=== PATIENT | male | born 1960 | race Caucasian/White ===

== ENCOUNTER 2020-11-21 11:31 | Emergency (ER) | payer BC, SELFPAY ==
[2020-11-21 11:41] VITALS: BP 150/90; PULSE 82; RESP 18; TEMP 36.6; O2SAT 98; BMI 20.2
--- NOTE | 2020-11-21 11:44 | ED_ITS ---
HPI - Chest Pain General Chief Complaint: Chest Pain Stated Complaint: chest pain,lightheaded Time Seen by Provider: 11/21/20 11:44 Source: patient Mode of arrival: ambulatory Limitations: no limitations History of Present Illness HPI narrative: Rapid medical evaluation / triage 60-year-old male with history of asthma, migraine headaches, recurrent SBO, Gastrointestinal Stromal Tumors status post resection at [facility] presents with complaint of chest pain since last night now resolved this morning felt lightheaded spotting here. No recent illness. He was on migraine medication recently stopped otherwise no other recent history. Normal bowel movement this morning. He is on baclofen for upper back for muscle spasm by neurologist. He does tell me that he had a traditional [place] dish prior to the onset of symptoms. MD complaint: chest pain Onset: after eating Pain location: substernal Quality: burning Exacerbating factors: nothing Treatment prior to arrival: none Risk Factors Coronary artery disease risk factors: none Related Data Allergies Allergy/AdvReac Type Severity Reaction Status Date / Time sulfamethoxazole Allergy Unknown UNKNOWN Verified 11/21/20 11:46 [From BACTRIM] trimethoprim [From BACTRIM] Allergy Unknown UNKNOWN Verified 11/21/20 11:46 erythromycin base AdvReac Mild NAUSEA & Verified 11/21/20 11:46 [ERYTHROMYCIN BASE] VOMITING naltrexone [NALTREXONE] AdvReac Mild NAUSEA & Verified 11/21/20 11:46 VOMITING Review of Systems Review of Systems: Constitutional: No Weight loss, No Fever, No Chills, No Night Sweats, No Fatigue, No Malaise ENT/Mouth: No Hearing loss, No Ear Pain, No Nasal Congestion, No Sinus Pain, No Hoarseness, No sore throat, No Rhinorrhea, No Swallowing Difficulty Eyes: No Eye Pain, No Swelling, No Redness, No Foreign Body, No Discharge, No Vision Changes Cardiovascular: No SOB, No Dyspnea on Exertion, No Orthopnea, No Edema, No Palpitations Respiratory: No Cough, No Sputum, No Wheezing, No Smoke Exposure, No Dyspnea Gastrointestinal: No Nausea, No Vomiting, No Diarrhea, No Constipation, No abdominal Pain, No Hematochezia, No Melena Genitourinary: no irregular bleeding, No Dysuria, No Urinary Frequency, No Hematuria, No Urinary Incontinence, No Urgency, No Flank Pain, No Urinary Flow Changes, No Hesitancy Musculoskeletal: No joint pain, No Myalgias, No Joint Swelling Skin: No Skin Lesions, No rash Neuro: No Weakness, No Numbness, No Paresthesias, No Loss of Consciousness, No Dizziness, No Headache Psych: No Social Issues Heme/Lymph: No Bruising, No Bleeding,No Lymphadenopathy Endocrine: No Polyuria, No Polydipsia, No Temperature Intolerance Yes all other systems are reviewed and are negative [facility] Past Medical History Medical History (Updated 11/21/20 @ 14:51 by Michael Mir NP) Allergies Asthma Bowel obstruction Chronic headaches GIST, malignant Kidney stones Surgical History (Updated 11/21/20 @ 11:45 by Kayce Acevedo) H/O splenectomy Social History Social History Advance Directives: No Advance Directives Information Provided: No Physical Exam Vital Signs: Vital Signs: Last Vital Signs Temp 97.9 F 11/21/20 11:41 Pulse 70 11/21/20 14:51 Resp 18 11/21/20 14:51 BP 123/75 11/21/20 14:51 Pulse Ox 99 11/21/20 14:51 Body Mass Index 20.2 Reviewed Const: General: cooperative and healthy appearing; No acute distress or intoxicated appearing Nutritional Appearance: average body habitus Orientation/consciousness: patient oriented x3 HENMT: Head: Yes normal to inspection Ears: hearing grossly normal bilaterally Eyes: General: appearance normal, both eyes and all related structures Visual Henry: normal visual henry by confrontation Neck: Neck: Yes normal visual inspection, No positive Brudzinski's sign, No positive Kernig's sign and No tender Thyroid: Thyroid normal Chest: Chest palpation & inspection: normal inspection of the chest Resp: Effort & Inspection: normal respiratory effort Auscultation: clear to auscultation bilaterally Cardio: Jugular venous distension: no JVD Rate: regular rate Rhythm: regular rhythm Heart sounds: S1 normal heart sound present and S2 normal heart sound present GI: Inspection: Yes normal to inspection Percussion: Yes normal to percussion Auscultation: normal bowel sounds : General: Yes no CVA tenderness Back/Spine/Pelvis: Back: no CVA tenderness Skin: General skin exam: no rashes or lesions noted Neuro: General: patient oriented x3 Extrem: General: Yes normal to inspection Course Course Course Narrative: 1146 Patient triage to main emergency room requiring further evaluation. Stable at this time. Labs order and drawn. [facility] - Chest Pain MDM Narrative Medical decision making narrative: Has been stable while in the ED. Offers no complaints of pain or discomfort. Has not had any further episodes. EKG nondiagnostic. X-ray negative. Labs overall stable. Symptoms resolved prior to arrival and have been going on since last evening with a negative high sensitivity troponin. Heart score 1 Suspicions for pulmonary embolism low given the presentation, not hypoxic nor tachycardic or prior history of DVT/PE or fractures that were contribute. Differential Diagnosis Differential diagnosis: Likely stable angina, atypical chest pain and chest pain; Unlikely fracture of rib, pneumothorax, unstable angina pectoris, st elevation myocardial infarction, costochondritis and biliary colic Medical Records Data Attestation: I reviewed the patient's medical records. Lab Data Attestation: I reviewed the patient's lab results. Result diagrams: 11/21/20 11:52 11/21/20 11:52 Labs: Lab Results 11/21/20 11/21/20 11/21/20 Range/Units 11:52 11:52 11:52 WBC 11.3 H (4.8-10.8) X10*3/uL RBC 4.14 L (4.60-5.80) X10*6/uL Hgb 13.5 L (14.0-18.0) g/dl Hct 40.9 L (42-52) % MCV 98.8 H (80-98) fL MCH 32.6 (27.0-33.0) pg MCHC 33.0 (31.0-36.0) g/dl RDW 12.7 (11.0-16.0) % Plt Count 293 (160-400) X10*3/uL MPV 11.2 (9.4-12.4) fL Immature Gran % (Auto) 0.3 (0.0-0.4) % Neut % (Auto) 77.5 H (45-73) % Lymph % (Auto) 11.5 L (20-40) % [place] % (Auto) 9.8 (2-11) % Eos % (Auto) 0.4 (0-4) % Baso % (Auto) 0.5 (0-2) % Lymph # (Auto) 1.3 (1.2-4.9) X10*3/uL [place] # (Auto) 1.1 (0.1-1.2) X10*3/uL Eos # (Auto) 0.0 (0.0-0.4) X10*3/uL Baso # (Auto) 0.1 (0.0-0.2) X10*3/uL Abs Immat Gran (auto) 0.03 (0.00-0.03) X10*3/uL Absolute Neuts (auto) 8.8 H (2.0-8.3) X10*3/uL Absolute Nucleated RBC 0.000 (0.0-0.012) X10*3/uL Nucleated RBC % (auto) 0.0 (0.0-0.2) /100WBC PT 11.8 (10.8-13.0) SEC INR 1.0 (0.9-1.1) APTT 31.3 (24.1-38.0) SEC Sodium 140 (135-145) mmol/L Potassium 4.6 (3.3-5.1) mmol/l Chloride 104 (96-108) mmol/L Carbon Dioxide 26 (22-29) mmol/L Anion Gap 15 (12-20) BUN 23 H (9-16) mg/dL Creatinine 0.95 (0.5-1.4) mg/dL Estim Creat Clear Calc 61.0 Estimated GFR > 60 Random Glucose 114 (60-115) mg/dL Calcium 9.3 (8.4-10.2) mg/dL Total Bilirubin 0.5 (0.0-1.0) mg/dL AST 27 (5-37) U/L ALT 27 (0-40) U/L Alkaline Phosphatase 59 (39-117) U/L Troponin I High Sens (<3.5-35.0) ng/L Total Protein 7.2 (6.5-8.0) g/dL Albumin 4.4 (3.5-5.0) g/dL Urine Color Urine Appearance Urine pH (5.0-8.0) Ur Specific [place] (1.005-1.025) Urine Protein (NEG-TRACE) MG/DL Urine Glucose (UA) (NEG) MG/DL Urine Ketones (NEG) MG/DL Urine Blood (NEG) Urine Nitrite (NEG) Ur Leukocyte Esterase (NEG) Urine RBC (0) /HPF Urine WBC (0-4) /HPF Ur Squamous Epith Cells /LPF Urine Bacteria /LPF 11/21/20 11/21/20 Range/Units 11:52 12:14 WBC (4.8-10.8) X10*3/uL RBC (4.60-5.80) X10*6/uL Hgb (14.0-18.0) g/dl Hct (42-52) % MCV (80-98) fL MCH (27.0-33.0) pg MCHC (31.0-36.0) g/dl RDW (11.0-16.0) % Plt Count (160-400) X10*3/uL MPV (9.4-12.4) fL Immature Gran % (Auto) (0.0-0.4) % Neut % (Auto) (45-73) % Lymph % (Auto) (20-40) % [place] % (Auto) (2-11) % Eos % (Auto) (0-4) % Baso % (Auto) (0-2) % Lymph # (Auto) (1.2-4.9) X10*3/uL [place] # (Auto) (0.1-1.2) X10*3/uL Eos # (Auto) (0.0-0.4) X10*3/uL Baso # (Auto) (0.0-0.2) X10*3/uL Abs Immat Gran (auto) (0.00-0.03) X10*3/uL Absolute Neuts (auto) (2.0-8.3) X10*3/uL Absolute Nucleated RBC (0.0-0.012) X10*3/uL Nucleated RBC % (auto) (0.0-0.2) /100WBC PT (10.8-13.0) SEC INR (0.9-1.1) APTT (24.1-38.0) SEC Sodium (135-145) mmol/L Potassium (3.3-5.1) mmol/l Chloride (96-108) mmol/L Carbon Dioxide (22-29) mmol/L Anion Gap (12-20) BUN (9-16) mg/dL Creatinine (0.5-1.4) mg/dL Estim Creat Clear Calc Estimated GFR Random Glucose (60-115) mg/dL Calcium (8.4-10.2) mg/dL Total Bilirubin (0.0-1.0) mg/dL AST (5-37) U/L ALT (0-40) U/L Alkaline Phosphatase (39-117) U/L Troponin I High Sens < 3.5 (<3.5-35.0) ng/L Total Protein (6.5-8.0) g/dL Albumin (3.5-5.0) g/dL Urine Color STRAW Urine Appearance CLEAR Urine pH 6.0 (5.0-8.0) Ur Specific [place] <= 1.005 (1.005-1.025) Urine Protein NEG (NEG-TRACE) MG/DL Urine Glucose (UA) NEG (NEG) MG/DL Urine Ketones NEG (NEG) MG/DL Urine Blood NEG (NEG) Urine Nitrite NEG (NEG) Ur Leukocyte Esterase NEG (NEG) Urine RBC 0-2 (0) /HPF Urine WBC 0-2 (0-4) /HPF Ur Squamous Epith Cells NONE /LPF Urine Bacteria NONE /LPF Imaging Data Chest x-ray: Radiologist's impression: [address] [address] XRay Report Signed Patient: Aashish Rodriguez MR#: [id number] : 1960 Acct:[id number] Age/Sex: 60 / M ADM Date: 11/21/20 Loc: .ED Attending Dr: Ordering Physician: Michael Mir NP Date of Service: 11/21/20 Procedure(s): XR chest 2V Accession Number(s): [id number] 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 FINDINGS: The lungs are well-expanded without acute pneumonic process. There is a 1.3 cm calcified density overlying left posterior ninth interspace question artifact or calcified pulmonary nodule or pleural plaque. It is not visualized on the lateral view. Size and pulmonary vascularity is normal. There is moderate spondylosis dorsal spine. XR/XR chest 2V IMPRESSION: No acute process seen. Calcified density left lower lobe question artifact versus calcified nodular pleural plaque. It was not visualized on previous exam 08/26/2014. Dictated By: JUAN C KHANNA MD Signed By: <Electronically signed by JUAN C KHANNA MD in OV> 11/21/20 1324 DD/ 1146 TD/TT: Aids Nurse: DORIAN ECG Data ECG #1: Interpretation: Normal sinus rhythm with sinus arrhythmia Normal ECG When compared with ECG of 29-NOV-2012 05:26, No significant change was found Discharge Plan Discharge Clinical Impression: Atypical chest pain Patient Disposition: Home, Self-Care Instructions: Chest Pain (ED) Additional Instructions: Your blood work was overall stable Chest x-ray was within normal limits Her EKG did not show any signs of heart attack Your COVID test was negative [place] diet Take her antacid medication as prescribed on an empty stomach with 8 oz cup of water in the morning Return if any concerns or any worsening symptoms including chest pain, shortness of breath, fever Otherwise follow up with her primary care in 1 week for follow-up Thank you Referrals: Shabbir Sosa MD [Primary Care Provider] - 1 week
--- NOTE | 2020-11-21 11:47 | ECG_ITS ---
Test Reason : CP Blood Pressure : / mmHG Vent. Rate : 065 BPM Atrial Rate : 065 BPM P-R Int : 134 ms QRS Dur : 088 ms QT Int : 394 ms P-R-T Axes : 059 014 033 degrees QTc Int : 409 ms Normal sinus rhythm with sinus arrhythmia Normal ECG When compared with ECG of 29-NOV-2012 05:26, No significant change was found Referred By: Michael Mir Electronically Signed By:SHIVANI RAMOS MD
[2020-11-21 12:11] LABS: MANUAL DIFF FLAG NO
[2020-11-21 12:14] LABS: Prothrombin Time 11.8 SEC (10.8-13.0)
[2020-11-21 12:17] LABS: Partial Thromboplastin Time 31.3 SEC (24.1-38.0)
[2020-11-21 12:25] LABS: Basophils Absolute Auto 0.1 X10*3/uL (0.0-0.2); Basophils Percent Auto 0.5 % (0-2); Eosinophils Percent Auto 0.4 % (0-4); Hematocrit 40.9 % (42-52); Hemoglobin 13.5 g/dl (14.0-18.0); Imm Gran Abs Auto 0.03 X10*3/uL (0.00-0.03); Imm Gran Pct Auto 0.3 % (0.0-0.4); Lymphocytes Absolute Auto 1.3 X10*3/uL (1.2-4.9); Lymphocytes Percent Auto 11.5 % (20-40); Mean Corpuscular Hemoglobin 32.6 pg (27.0-33.0); Mean Corpuscular Volume 98.8 fL (80-98); Mean Platelet Volume 11.2 fL (9.4-12.4); Monocytes Absolute Auto 1.1 X10*3/uL (0.1-1.2); Monocytes Percent Auto 9.8 % (2-11); Neutrophils Absolute Auto 8.8 X10*3/uL (2.0-8.3); Neutrophils Percent Auto 77.5 % (45-73); Platelet Count 293 X10*3/uL (160-400); Red Blood Count 4.14 X10*6/uL (4.60-5.80); Red Cell Distribution Width 12.7 % (11.0-16.0); White Blood Count 11.3 X10*3/uL (4.8-10.8)
[2020-11-21 12:31] LABS: Glucose Urine UA NEG (NEG); Leukocyte Esterase Urine NEG (NEG); Nitrite Urine NEG (NEG); Specific Gravity - Urine <= 1.005 (1.005-1.025); Urine Blood NEG (NEG); Urine Ketones NEG (NEG); Urine Protein NEG (NEG-TRACE)
[2020-11-21 12:33] LABS: Appearance Urine CLEAR; Color Urine STRAW
[2020-11-21 12:38] LABS: Alanine Aminotransferase 27 U/L (0-40); Albumin Level 4.4 g/dL (3.5-5.0); Alkaline Phosphatase 59 U/L (39-117); Anion Gap 15 (12-20); Aspartate Amino Transferase 27 U/L (5-37); Bilirubin Total 0.5 mg/dL (0.0-1.0); Blood Urea Nitrogen 23 mg/dL (9-16); Calcium 9.3 mg/dL (8.4-10.2); Carbon Dioxide 26 mmol/L (22-29); Chloride 104 mmol/L (96-108); Estimated Glomerular Filt Rate > 60; Glucose Random 114 mg/dL (60-115); Potassium 4.6 mmol/l (3.3-5.1); Sodium 140 mmol/L (135-145); Total Protein 7.2 g/dL (6.5-8.0)
[2020-11-21 12:41] LABS: Troponin-I High Sensitivity < 3.5 ng/L (<3.5-35.0)
[2020-11-21 12:48] LABS: RBC Urine 0-2 /HPF (0); WBC Urine 0-2 /HPF (0-4)
--- NOTE | 2020-11-21 14:49 | PC.NURSE ---
re evaluation completed, plan to d.c home
[2020-11-21 14:51] VITALS: BP 123/75; PULSE 70; RESP 18; O2SAT 99
== END 2020-11-21 16:30 | disposition home or self-care (01) ==
LOC: HO.ED 14:57
PROVIDERS: Nurse Practitioner Primary Care; Emergency Provider Emergency Medicine; PCP Internal Medicine
DX: R07.89 Other chest pain (principal)
CPT/HCPCS: 36415; 71046; 80053; 81001; 84484; 85025; 85610; 85730; 93005; 99283

== ENCOUNTER 2024-11-17 11:46 | Emergency (ER) | payer BC, SELFPAY ==
--- NOTE | ~2024-11-17 | CT_ITS ---
EXAMINATION: CT HEAD WITHOUT CONTRAST CLINICAL INFORMATION: headache. pmh of stomach CA. metastesis COMPARISON: None available. TECHNIQUE: Contiguous axial imaging was performed from the skull base to vertex without intravenous administration of contrast. This CT examination was performed using dose optimization techniques as appropriate, variously including the following: *Automated exposure control *Adjustment of mA and/or kV according to patient size (this includes techniques or standardized protocols for targeted exams where dose is matched to indication/reason for exam; i.e. extremities or head) *Use of iterative reconstruction technique DLP: 732 mGy-cm FINDINGS: Bony calvarium is intact. Skull base is intact. No acute intracranial hemorrhage, mass effect, midline shift, hydrocephalus or herniation. Ritter-white matter differentiation is normal. Posterior cranial fossa contents demonstrated no acute intracranial hemorrhage or mass effect. Sellar/suprasellar region demonstrated no gross masses. Mucosal thickening, maxillary sinuses. Tympanic cavities and mastoid cells are aerated. No lytic or blastic lesions in the bony calvarium. S-shaped nasal septum deviation. CT/CT head/brain wo IV con IMPRESSION: No acute or structural brain abnormality by CT. Electronically signed by: eLnin Bryan MD 11/17/2024 12:46 PM EST
[2024-11-17 12:15] VITALS: BP 145/79; PULSE 64; RESP 18; TEMP 36.1; O2SAT 99; BMI 24.6
--- NOTE | 2024-11-17 12:18 | ECG_ITS ---
Test Reason : HEADACHE,NAUSEA Blood Pressure : */* mmHG Vent. Rate : 64 BPM Atrial Rate : 64 BPM P-R Int : 160 ms QRS Dur : 88 ms QT Int : 418 ms P-R-T Axes : 67 -22 26 degrees QTcB Int : 431 ms Normal sinus rhythm Normal ECG When compared with ECG of 21-Nov-2020 12:10, No significant change was found Referred By: Arash Pacheco Electronically Signed By: SHARI REILLY
--- NOTE | 2024-11-17 12:20 | ED_ITS ---
HPI - General Adult General Chief complaint: Headache Stated complaint: Migraine, nausea History of Present Illness HPI narrative: Patient left before completion of treatment by ED provider. Related Data Allergies Allergy/AdvReac Type Severity Reaction Status Date / Time sulfamethoxazole Allergy Unknown UNKNOWN Verified 11/17/24 12:18 [From BACTRIM] trimethoprim [From BACTRIM] Allergy Unknown UNKNOWN Verified 11/17/24 12:18 erythromycin base AdvReac Mild NAUSEA & Verified 11/17/24 12:18 [ERYTHROMYCIN BASE] VOMITING naltrexone [NALTREXONE] AdvReac Mild NAUSEA & Verified 11/17/24 12:18 VOMITING PMFSH Past Medical History Medical History (Updated 11/18/24 @ 08:58 by LORRAINE Stephen) Bowel obstruction Kidney stones Chronic headaches Allergies GIST, malignant Asthma Surgical History (Updated 11/21/20 @ 11:45 by Kayce Acevedo) H/O splenectomy Social History Social History Advance Directives: No Advance Directives Information Provided: No Do you have a plan to hurt others: No Plan Physical Exam ED Vital Signs: Vital Signs - 24 hr 11/17/24 12:15 Temperature 97 F Pulse Rate 64 Respiratory Rate 18 Blood Pressure 145/79 H Pulse Oximetry 99 Oxygen Delivery Method Room Air BMI result Body Mass Index 24.6 Course Course Course Narrative: RME: 64-year-old male history of stomach cancer diagnosed in August on chemo presents to ED for headache for the past 4-5 days. Patient states history of migraines but this is the worst headache he has ever had as per patient. Neuro exam is intact. Labs head CT scan ordered. Charge nurse made aware to bring patient to the ED due to history of cancer. Medical Decision Making Lab Data 11/17/24 12:52 11/17/24 12:52 Labs: Lab Results 11/17/24 Range/Units 12:52 WBC 4.2 L (4.8-10.8) X10*3/uL RBC 3.51 L (4.60-5.80) X10*6/uL Hgb 12.5 L (14.0-18.0) g/dl Hct 36.0 L (42.0-52.0) % MCV 102.6 H (80.0-98.0) fL MCH 35.6 H (27.0-33.0) pg MCHC 34.7 (31.0-36.0) g/dl RDW 16.6 H (11.0-16.0) % Plt Count 174 (160-400) X10*3/uL MPV 10.8 (9.4-12.4) fL Immature Gran % (Auto) 0.2 (0.0-0.4) % Neut % (Auto) 72.6 (45-73) % Lymph % (Auto) 15.4 L (20-40) % [place] % (Auto) 9.6 (2-11) % Eos % (Auto) 1.7 (0-4) % Baso % (Auto) 0.5 (0-2) % Lymph # (Auto) 0.6 L (1.2-4.9) X10*3/uL [place] # (Auto) 0.4 (0.1-1.2) X10*3/uL Eos # (Auto) 0.1 (0.0-0.4) X10*3/uL Baso # (Auto) 0.0 (0.0-0.2) X10*3/uL Abs Immat Gran (auto) 0.01 (0.00-0.03) X10*3/uL Absolute Neuts (auto) 3.0 (2.0-8.3) x10*3/uL Absolute Nucleated RBC 0.000 (0.0-0.012) X10*3/uL Nucleated RBC % (auto) 0.0 (0.0-0.2) /100WBC PT 11.2 (10.9-12.4) SEC INR 1.0 (0.9-1.1) APTT 30.4 (26.0-36.8) SEC Sodium 139 (135-145) mmol/L Potassium 4.3 (3.3-5.1) mmol/L Chloride 106 (96-108) mmol/L Carbon Dioxide 29 (22-29) mmol/L Anion Gap 8 L (12-20) BUN 18 H (9-16) mg/dL Creatinine 0.89 (0.5-1.4) mg/dL Estim Creat Clear Calc 68.3 Estimated GFR > 60 Random Glucose 109 (60-115) mg/dL Calcium 9.1 (8.4-10.2) mg/dL Total Bilirubin 0.5 (0.0-1.0) mg/dL AST 51 H (5-37) U/L ALT 49 H (0-40) U/L Alkaline Phosphatase 65 (39-117) U/L Troponin I High Sens < 2.7 (<3.5-35.0) ng/L Total Protein 6.4 L (6.5-8.0) g/dL Albumin 4.0 (3.5-5.0) g/dL Lipase 19 (8-78) U/L Influenza Type A (PCR) NEGATIVE (Negative) Influenza Type B (PCR) NEGATIVE (Negative) RSV RNA Qual (PCR) NEGATIVE (Negative) SARS-CoV-2 RNA (RT-PCR) NEGATIVE (Negative) Discharge Plan Discharge Clinical Impression: Headache Patient Disposition: Left W/O Completing Treatment Discharge Date/Time: 11/17/24 17:44
[2024-11-17 12:56] LABS: MANUAL DIFF FLAG NO
[2024-11-17 12:58] LABS: Basophils Percent Auto 0.5 % (0-2); Eosinophils Absolute Auto 0.1 X10*3/uL (0.0-0.4); Eosinophils Percent Auto 1.7 % (0-4); Hemoglobin 12.5 g/dl (14.0-18.0); Imm Gran Abs Auto 0.01 X10*3/uL (0.00-0.03); Imm Gran Pct Auto 0.2 % (0.0-0.4); Lymphocytes Absolute Auto 0.6 X10*3/uL (1.2-4.9); Lymphocytes Percent Auto 15.4 % (20-40); Mean Corpuscular HGB Conc 34.7 g/dl (31.0-36.0); Mean Corpuscular Hemoglobin 35.6 pg (27.0-33.0); Mean Corpuscular Volume 102.6 fL (80.0-98.0); Mean Platelet Volume 10.8 fL (9.4-12.4); Monocytes Absolute Auto 0.4 X10*3/uL (0.1-1.2); Monocytes Percent Auto 9.6 % (2-11); Neutrophils Percent Auto 72.6 % (45-73); Platelet Count 174 X10*3/uL (160-400); Red Blood Count 3.51 X10*6/uL (4.60-5.80); Red Cell Distribution Width 16.6 % (11.0-16.0); White Blood Count 4.2 X10*3/uL (4.8-10.8)
[2024-11-17 13:08] LABS: Prothrombin Time 11.2 SEC (10.9-12.4)
[2024-11-17 13:11] LABS: Alanine Aminotransferase 49 U/L (0-40); Alkaline Phosphatase 65 U/L (39-117); Anion Gap 8 (12-20); Aspartate Amino Transferase 51 U/L (5-37); Bilirubin Total 0.5 mg/dL (0.0-1.0); Blood Urea Nitrogen 18 mg/dL (9-16); Calcium 9.1 mg/dL (8.4-10.2); Carbon Dioxide 29 mmol/L (22-29); Chloride 106 mmol/L (96-108); Creatinine Clr Calc Pharmacy 68.3; Estimated Glomerular Filt Rate > 60; Glucose Random 109 mg/dL (60-115); Lipase 19 U/L (8-78); Partial Thromboplastin Time 30.4 SEC (26.0-36.8); Potassium 4.3 mmol/L (3.3-5.1); Sodium 139 mmol/L (135-145); Total Protein 6.4 g/dL (6.5-8.0)
[2024-11-17 13:21] LABS: Troponin-I High Sensitivity < 2.7 ng/L (<3.5-35.0)
[2024-11-17 13:34] LABS: Influenza A PCR NEGATIVE (Negative); Influenza B PCR NEGATIVE (Negative); Resp Syncy Virus RNA Qual PCR NEGATIVE (Negative); SARS COV2 PCR INHOUSE NEGATIVE (Negative)
--- OUTSIDE RECORDS SUMMARY | 2024-11-17 19:39 | XMS_ITS | Patient Health Record ---
Author Organization [facility] Address [address] [place] [address] Care Team Providers Care Aws Solution Architect Name Role Phone James Camilo Primary Care Provider Reason For Referral No Information Medications Medication SIG (Take, Route, Frequency, Duration) Notes Start Date End Date Status ACETAMINOPHEN 500 MG CAPLET 0 2 prn for 30 *please review for potential update for e-prescription and drug interaction check* 11/01/2010 Active Metoclopramide HCl 10 MG 0 Oral 1 q6h for 30 05/09/2011 Active [id number] TAB 0 11 bid for 30 *please review for potential update for e-prescription and drug interaction check* 11/01/[address] 20 MG CAPSULE 0 qhs for 30 *please review for potential update for e-prescription and drug interaction check* 11/01/2010 Active UROXATRAL 10 MG TABLET 0 1 qpm for 30 *please r clark for potential update for e-prescription and drug interaction check* 11/01/2010 Active VITAMIN D 50,000 UNITS CAPSULE 0 1/week for 30 *please review for potential update for e-prescription and drug interaction check* 11/01/2010 Active Plan Of Treatment No Information Insurance Providers Payer Name Payer Address Payer Phone Subscriber Number Group Number Insured Name Patient Relationship to Insured Coverage Start Date Coverage End Date [employer] [place]/H[place] [address] [place], [place] [id number] Aashish Rodriguez Self - patient is the insured
== END 2024-11-17 17:44 | disposition left against medical advice (07) ==
PROVIDERS: Physician Assistant; Emergency Provider Emergency Medicine; PCP Physician Assistant Medical
DX: R51.9 Headache, unspecified (principal); R11.0 Nausea; C16.9 Malignant neoplasm of stomach, unspecified; J45.909 Unspecified asthma, uncomplicated; Z03.818 Encounter for observation for suspected exposure to other biological agents ruled out; Z51.81 Encounter for therapeutic drug level monitoring; Z92.21 Personal history of antineoplastic chemotherapy; Z79.899 Other long term (current) drug therapy
CPT/HCPCS: 0241U; 36415; 70450; 80053; 83690; 84484; 85025; 85610; 85730; 93005; 99283; 99284

== ENCOUNTER → 2024-11-17 12:18 | Outpatient (BNV) | payer BC, SELFPAY | PROVIDERS: PCP Physician Assistant Medical; Visit Provider Radiology Diagnostic Radiology | DX: R51.9 Headache, unspecified (principal) | CPT/HCPCS: 70450 ==

== ENCOUNTER → 2024-11-17 12:18 | Outpatient (BNV) | payer BC, SELFPAY | PROVIDERS: Emergency Provider Emergency Medicine; PCP Physician Assistant Medical; Visit Provider Internal Medicine | DX: R51.9 Headache, unspecified (principal); R11.0 Nausea | CPT/HCPCS: 93010 ==